=== PATIENT | male | born 1970 | race Caucasian/White ===

== ENCOUNTER 2017-08-10 09:07 | Emergency (ER) | payer BC ==
--- NOTE | 2017-08-10 09:40 | ER Document Report ---
ED Medical Screen (RME) - General Chief Complaint: Back Pain Stated Complaint: BACK PAIN Time Seen by Provider: 08/10/17 09:25 Mode of Arrival: Ambulatory Information source: Patient TRAVEL OUTSIDE OF THE [place] IN LAST 30 DAYS: No - HPI Patient complains to provider of: neck pain, right arm weakness/numbness Notes: 08/10/17 09:38 Patient is here with complaints of neck pain and right arm weakness and numbness. He states that last week he stepped off of a curb and did not realize that there was a drop. He landed hard and nelida his neck. States that over the last week the pain has progressively gotten worse. He was seen and had x-rays showing no fractures. He was placed on Mobic and Flexeril. States that this morning he woke up and now his right ulnar aspect of his hand feels numb. He denies any numbness, tingling, weakness to the lower extremities. He denies any headache or blurred vision. No blood thinners. Physical exam: No acute distress. 4 out of 5 strength to the right upper extremity with flexion and extension. Decreased sensation to the ulnar aspect of the right hand. Normal strength and sensation to the lower extremities. Cranial nerves are normal. Plan: MRI of the cervical spine. An initial examination was made on the patient as part of the triage process, and it was determined a more comprehensive evaluation was necessary. Initial labs were ordered and patient was transferred to another provider in the ED who assumed care and finished evaluation and plan. - Related Data Allergies/Adverse Reactions: No Known Allergies Allergy (Unverified 08/10/17 09:10) Physical Exam - Vital signs Vitals: Temp Pulse Resp BP Pulse Ox 98.3 F 81 16 145/93 H 98 08/10/17 09:18 08/10/17 09:18 08/10/17 09:18 08/10/17 09:18 08/10/17 09:18 Course - Vital Signs Vital signs: Temp Pulse Resp BP Pulse Ox 98.3 F 81 16 145/93 H 98 08/10/17 09:18 08/10/17 09:18 08/10/17 09:18 08/10/17 09:18 08/10/17 09:18
--- NOTE | 2017-08-10 10:57 | RADIOLOGY REPORT (SQ) ---
EXAM DESCRIPTION: MRI CERVICAL SPINE WITHOUT COMPLETED DATE/TIME: 08/10/2017 10:41 am REASON FOR STUDY: neck pain, right arm weakness, right hand numbness COMPARISON: None. TECHNIQUE: Sagittal and Axial imaging includes T1, T2, STIR and gradient echo sequences. LIMITATIONS: Motion. FINDINGS: ALIGNMENT: Normal. VERTEBRAE: Intact. BONE MARROW: Normal. No marrow replacement or reactive changes. DISCS: Desiccation multiple levels. HARDWARE: None in the spine. CORD AND BASE OF BRAIN: Normal in size and signal intensity. SOFT TISSUES: No soft tissue masses. C1-C2: No significant spinal stenosis. C2-C3: No significant spinal stenosis or exit foraminal stenosis. C3-C4: No significant spinal stenosis or exit foraminal stenosis. C4-C5: No significant spinal stenosis or exit foraminal stenosis. C5-C6: Mild spinal stenosis due to small central disc protrusion. There is contact with the ventral margin of the cord but no compression. C6-C7: No significant spinal stenosis or exit foraminal stenosis. C7-T1: No significant spinal stenosis or exit foraminal stenosis. UPPER THORACIC: Incompletely imaged. No significant spinal stenosis or exit foraminal stenosis. OTHER: No other significant finding. IMPRESSION: Small disc herniation C5-6. TECHNICAL DOCUMENTATION: JOB ID: [id number] [employer] All Rights Reserved Reading location - IP/workstation name: [email or web address]
--- NOTE | 2017-08-10 11:34 | ER Document Report ---
ED General Pain - General Chief Complaint: Back Pain Stated Complaint: BACK PAIN Time Seen by Provider: 08/10/17 09:25 Mode of Arrival: Ambulatory Information source: Patient Notes: Pt is a 47 year old male who presents to the ER today for right neck pain and right hand numbness/tingling/weakness since walking 8 days ago in a parking lot and didnt see that there was a curb to step off, and accidentally stepped of that curb "really hard." He saw urgent care yesterday and was prescribed mobic and flexeril and states that it's not improving. He denies any other injury. TRAVEL OUTSIDE OF THE [place] IN LAST 30 DAYS: No - Related Data Allergies/Adverse Reactions: No Known Allergies Allergy (Unverified 08/10/17 09:10) Past Medical History - General Information source: Patient - Social History Smoking Status: Unknown if Ever Smoked Family History: Reviewed & Not Pertinent Patient has suicidal ideation: No Patient has homicidal ideation: No Renal/ Medical History: Denies: Hx Peritoneal Dialysis Review of Systems - Review of Systems Constitutional: No symptoms reported EENT: No symptoms reported Cardiovascular: No symptoms reported Respiratory: No symptoms reported Gastrointestinal: No symptoms reported Genitourinary: No symptoms reported Male Genitourinary: No symptoms reported Musculoskeletal: See HPI Skin: No symptoms reported Hematologic/Lymphatic: No symptoms reported Neurological/Psychological: See HPI Physical Exam - Vital signs Vitals: Temp Pulse Resp BP Pulse Ox 98.3 F 81 16 145/93 H 98 08/10/17 09:18 08/10/17 09:18 08/10/17 09:18 08/10/17 09:18 08/10/17 09:18 - Notes Notes: PHYSICAL EXAMINATION: GENERAL: uncomfortable appearing, but in no acute distress. HEAD: Atraumatic, normocephalic. EYES: pupils equal round and reactive to light, extraocular movements intact, sclera anicteric, conjunctiva are normal. NECK: Normal range of motion but with pain on rotation to the right, supple without lymphadenopathy LUNGS: CTAB and equal. No wheezes rales or rhonchi. HEART: Regular rate and rhythm without murmurs BACK: no vertebral tenderness, normal ROM GI/: no CVA tenderness EXTREMITIES: Normal range of motion, no pitting edema. No cyanosis. NEUROLOGICAL: Cranial nerves grossly intact. decreased sensation to the right lateral hand, Good and equal strength bilaterally PSYCH: Normal mood, normal affect. SKIN: Warm, Dry, normal turgor, no rashes or lesions noted Course - Re-evaluation Re-evalutation: 08/10/17 23:50 MRI reveals a herniated disc at C5-C6. Pt will be placed on steroids and provided with pain medication, given neurosurgeon in area for follow up. - Vital Signs Vital signs: Temp Pulse Resp BP Pulse Ox 98.7 F 64 16 128/78 H 98 08/10/17 11:42 08/10/17 11:42 08/10/17 09:18 08/10/17 11:42 08/10/17 11:42 Discharge - Discharge Clinical Impression: Cervical herniated disc Condition: Stable Disposition: HOME, SELF-CARE Additional Instructions: Return immediately for any new or worsening symptoms. Follow up with neurosurgeon, call tomorrow to make followup appointment. Prescriptions: Oxycodone HCl/Acetaminophen [Percocet 5-325 mg Tablet] 1 - 2 tab PO Q4H PRN #15 tablet PRN Reason: Prednisone [Deltasone 20 mg Tablet] 3 tab PO DAILY 10 Days tablet Forms: Return to Work Referrals: MARK LEWIS MD [COMMUNITY BASED STAFF] - Follow up as needed
[2017-08-10 11:43] VITALS: BP 128/78
== END 2017-08-10 11:44 | disposition home or self-care (01) ==
LOC: ER 09:07
DX: S13.161A Dislocation of C5/C6 cervical vertebrae, initial encounter (principal); M54.2 Cervicalgia; X58.XXXA Exposure to other specified factors, initial encounter; Y93.01 Activity, walking, marching and hiking; Y92.481 Parking lot as the place of occurrence of the external cause
CPT/HCPCS: 72141; 99283